=== PATIENT | male | born 1955 | race Caucasian/White ===

== ENCOUNTER 2018-10-15 14:14 | Inpatient (IN) | payer BC ==
[~2018-10-15] VITALS: Ht 185.4 cm; Wt 73.0 kg
[2018-10-15 14:55] LABS: BASOPHILS # (AUTO) 0.1 X10'3 (0-0.2); EOSINOPHILS # (AUTO) 0.3 X10'3 (0-0.9); EOSINOPHILS % (AUTO) 2.4 % (0-6); RED CELL DISTRIBUTION WIDTH 18.5 % (11.5-14.5)
[2018-10-15 14:56] LABS: BASOPHILS % (AUTO) 0.6 % (0-1); HEMATOCRIT 30.1 % (42.0-52.0); HEMOGLOBIN 9.5 g/dl (14.0-17.9); MEAN CORPUSCULAR HEMOGLOBIN 22.2 PG (27.0-31.0); MEAN CORPUSCULAR HGB CONC 31.4 g/dL (33.0-36.5); MEAN CORPUSCULAR VOLUME 70.7 FL (78-98); MEAN PLATELET VOLUME 6.4 FL (7.4-10.4); MONOCYTES # (AUTO) 0.7 X10'3 (0-0.9); MONOCYTES % (AUTO) 5.7 % (2-12); NEUTROPHILS % (AUTO) 83.3 % (42-75); PLATELET COUNT 678 X10'3 (140-440); RED BLOOD COUNT 4.26 X10'6 (4.70-6.10); WHITE BLOOD COUNT 12.1 X10'3 (4.5-11.0)
[2018-10-15 15:07] LABS: INR 1.1 INR; PARTIAL THROMBOPLASTIN TIME 33 SECONDS (22-32)
[2018-10-15 15:09] LABS: ALANINE AMINOTRANSFERASE 19 U/L (12-78); ALBUMIN 1.5 G/DL (3.4-5.0); ALBUMIN/GLOBULIN RATIO 0.3 (1.1-1.5); ALKALINE PHOSPHATASE 65 IU/L (46-116); ANION GAP 5 (8-16); ASPARTATE AMINO TRANSFERASE 20 U/L (10-37); BILIRUBIN,TOTAL 0.3 MG/DL (0.1-1.0); BLOOD UREA NITROGEN 12 MG/DL (7-18); CALCIUM 8.4 MG/DL (8.5-10.1); CHLORIDE 98 MMOL/L (99-107); CREATININE 0.75 MG/DL (0.60-1.10); GLUCOSE 99 MG/DL (70-104); POTASSIUM 3.9 MMOL/L (3.5-5.1); SODIUM 132 MMOL/L (135-145); TOTAL CARBON DIOXIDE 29.3 MMOL/L (24-32); TOTAL PROTEIN 6.4 G/DL (6.4-8.2); eGFR > 90 ML/MIN
[2018-10-15] MEDS ORDERED: iohexol 300mg/ml 100ml inj. ONE (15:38)
[2018-10-15] MEDS ORDERED: iohexol 300 MG/1 ML 50ml polymer ONE (15:41)
[2018-10-15] MEDS ORDERED: HYDR-3965 PO (15:44)
[2018-10-15] MEDS ORDERED: piperacillin/tazo 3.375gm/50ml 50 ML IV ONE (17:10)
[2018-10-15] MEDS ORDERED: AMOX1TAB15 PO (17:32)
[2018-10-15] MEDS ORDERED: OMEP-50 PO (17:32)
--- NOTE | 2018-10-15 19:44 | NUR ---
PT REMAINS IN ISOLATION, AIRBORN, AT BEDSIDE. CURRENT VSS. PT AWAITING HOSPITALIST.
--- NOTE | 2018-10-15 20:10 | NUR ---
dr yao at bedside for admission. pt reports a 22 lb weight loss over the past 4 weeks. reports the pts results on his TB testing are not yet resulted. pt's at bedside. remains tachycardic @ 105. rr 20 and sats 93% on RA.
--- NOTE | 2018-10-15 20:24 | NUR ---
UA COLLECTED, , YAO, CELL [phone]. PT WILL NEED NEGATIVE PRESSURE ROOM AND UPDATED OF POSSIBLE DELAY.
[2018-10-15 20:27] LABS: CLARITY,URINE CLEAR (Clear); COLOR,URINE YELLOW (Yellow); GLUCOSE, URINE NEGATIVE (Neg); KETONES,URINE NEGATIVE (Neg); LEUKOCYTE ESTERASE ,URINE NEGATIVE (Neg); NITRITES, URINE NEGATIVE (Neg); OCCULT BLOOD,URINE NEGATIVE (Neg); PH,URINE 6.5 (4.8-8.0); PROTEIN,URINE TRACE mg/dl (Neg); UROBILINOGEN,URINE 0.2 E.U/dL (0.2-1.0)
[2018-10-15] MEDS ORDERED: ondansetron/PF 4mg/2ml inj IV PRN (20:30)
[2018-10-15] MEDS ORDERED: mag hydrox/Alum hydrox/simeth 30ml oral suspension PO PRN (20:30)
[2018-10-15] MEDS ORDERED: magnesium hydroxide 30ml (MOM) UD suspension PO PRN (20:30)
[2018-10-15 20:31] LABS: UA COLLECTION TYPE CLN CATCH MIDSTREAM
[2018-10-15 20:38] LABS: BACTERIA,URINE FEW /HPF (Neg); MUCUS STRANDS MODERATE /LPF (Neg); RBC,URINE 0-2 /HPF (0-2); SQUAMOUS EPITHELIAL CELL,UR FEW /LPF (FEW); WBC,URINE 0-4 /HPF (0-4)
--- NOTE | 2018-10-15 23:20 | NUR ---
Received report from LEYDA Parsons. Awaiting patient arrival to the floor.
[2018-10-15] MEDS: HYDROcodone/acetaminophen 10/325mg tab PO PRN (23:26)
[2018-10-16] VITALS: BP 103/62
--- NOTE | 2018-10-16 | NUR ---
Patient arrived via gurney to the floor. Patient placed in room 341; awake and alert on 2L NC, in no apparent distress. Visitor at bedside. Call light and items of frequent use within reach. Will continue to monitor.
[2018-10-16 02:51] LABS: BASOPHILS # (AUTO) 0.1 X10'3 (0-0.2); BASOPHILS % (AUTO) 1.1 % (0-1); EOSINOPHILS # (AUTO) 0.4 X10'3 (0-0.9); EOSINOPHILS % (AUTO) 3.8 % (0-6); HEMATOCRIT 26.8 % (42.0-52.0); HEMOGLOBIN 8.7 g/dl (14.0-17.9); LYMPHOCYTES # (AUTO) 1.1 X10'3 (1.1-4.8); LYMPHOCYTES % (AUTO) 11.3 % (21-51); MEAN CORPUSCULAR HEMOGLOBIN 22.7 PG (27.0-31.0); MEAN CORPUSCULAR HGB CONC 32.4 g/dL (33.0-36.5); MEAN CORPUSCULAR VOLUME 70.1 FL (78-98); MEAN PLATELET VOLUME 6.3 FL (7.4-10.4); MONOCYTES # (AUTO) 0.7 X10'3 (0-0.9); MONOCYTES % (AUTO) 6.6 % (2-12); NEUTROPHILS # (AUTO) 7.7 X10'3 (1.8-7.7); NEUTROPHILS % (AUTO) 77.2 % (42-75); PLATELET COUNT 557 X10'3 (140-440); RED BLOOD COUNT 3.82 X10'6 (4.70-6.10); RED CELL DISTRIBUTION WIDTH 18.9 % (11.5-14.5)
[2018-10-16 03:08] LABS: ALANINE AMINOTRANSFERASE 15 U/L (12-78); ALBUMIN 1.3 G/DL (3.4-5.0); ALBUMIN/GLOBULIN RATIO 0.3 (1.1-1.5); ALKALINE PHOSPHATASE 68 IU/L (46-116); ANION GAP 4 (8-16); ASPARTATE AMINO TRANSFERASE 15 U/L (10-37); BILIRUBIN,TOTAL 0.2 MG/DL (0.1-1.0); BLOOD UREA NITROGEN 12 MG/DL (7-18); BUN/CREATININE RATIO 16.2 (5.4-32.0); CALCIUM 8.4 MG/DL (8.5-10.1); CHLORIDE 100 MMOL/L (99-107); CREATININE 0.74 MG/DL (0.60-1.10); GLUCOSE 121 MG/DL (70-104); POTASSIUM 3.7 MMOL/L (3.5-5.1); SODIUM 133 MMOL/L (135-145); TOTAL CARBON DIOXIDE 29.3 MMOL/L (24-32); TOTAL PROTEIN 5.6 G/DL (6.4-8.2); eGFR > 90 ML/MIN
[2018-10-16 04:16] LABS: ANISOCYTOSIS 2+; MICROCYTOSIS 1+; PLATELET ESTIMATE INCREASED
[2018-10-16 04:17] LABS: ELLIPTOCYTES FEW; HYPOCHROMASIA 1+
--- NOTE | 2018-10-16 06:18 | NUR ---
Problems reprioritized. Patient report given, questions answered & plan of care reviewed with LEYDA Curry.
[2018-10-16 07:08] VITALS: BP 107/59
[2018-10-16] MEDS ORDERED: non-formulary drug (Omeprazole 1 CAP) PO SCH (08:00)
[2018-10-16] MEDS ORDERED: heparin, porcine 5000 units/ml vial SQ SCH (08:00)
[2018-10-16] MEDS: pantoprazole 40mg Tablet.DR PO SCH ×2 (08:16→20:23)
[2018-10-16] MEDS ORDERED: potassium Cl 20 mEq SR tablet PO PRN (08:45)
[2018-10-16] MEDS ORDERED: magnesium Cl slow-release 64mg tablet PO PRN (08:45)
[2018-10-16] MEDS ORDERED: magnesium 4gm in 100ml NS 100 ML IV PRN (08:45)
[2018-10-16] MEDS ORDERED: potassium Cl 40MEQ/NS 500ml 500 ML IV PRN ×2 (08:45)
[2018-10-16 11:00] VITALS: BP 103/59
[2018-10-16 13:01] LABS: FERRITIN 644 NG/ML (26-388)
[2018-10-16 13:29] LABS: % IRON SATURATION 7 % (11-46); IRON 10 UG/DL (53-167); TOTAL IRON BINDING CAPACITY 137 UG/DL (259-388)
[2018-10-16] MEDS: HYDROcodone/acetaminophen 5mg/325mg tablet PO PRN (14:57)
[2018-10-16 16:06] LABS: HIV ANTIBODY 1&2 RAPID NON-REACTIVE (Neg)
[2018-10-16] MEDS ORDERED: PEG 3350/Na sulf,bicarb,Cl/KCl oral sol 4 liter bottle PO ONE (16:15)
[2018-10-16] MEDS ORDERED: ipratropium/albuterol 3ml nebule NEB PRN (16:20)
[2018-10-16] MEDS: normal saline 1000ml 1,000 ML IV SCH (17:30)
[2018-10-16 18:00] VITALS: BP 103/59
--- NOTE | 2018-10-16 18:30 | NUR ---
Patient in room [facility]. I have received report from LEYDA Curry and had the opportunity to ask questions and assume patient care.
[2018-10-17] VITALS (9 sets, daily range): BP systolic 97–119; BP diastolic 53–67
[2018-10-17] MEDS: HYDROcodone/acetaminophen 10/325mg tab PO PRN (01:24)
[2018-10-17] MEDS: normal saline 1000ml 1,000 ML IV SCH ×2 (03:07→13:00)
[2018-10-17 03:36] LABS: OCCULT BLOOD STOOL NEGATIVE (Neg)
[2018-10-17 04:21] LABS: BASOPHILS # (AUTO) 0.1 X10'3 (0-0.2); EOSINOPHILS # (AUTO) 0.3 X10'3 (0-0.9)
[2018-10-17 04:23] LABS: EOSINOPHILS % (AUTO) 2.8 % (0-6); HEMATOCRIT 28.5 % (42.0-52.0); LYMPHOCYTES # (AUTO) 1.1 X10'3 (1.1-4.8); LYMPHOCYTES % (AUTO) 10.8 % (21-51); MEAN CORPUSCULAR HEMOGLOBIN 22.6 PG (27.0-31.0); MEAN CORPUSCULAR HGB CONC 31.8 g/dL (33.0-36.5); MEAN PLATELET VOLUME 6.5 FL (7.4-10.4); MONOCYTES # (AUTO) 0.6 X10'3 (0-0.9); NEUTROPHILS # (AUTO) 8.3 X10'3 (1.8-7.7); NEUTROPHILS % (AUTO) 79.4 % (42-75); PLATELET COUNT 671 X10'3 (140-440); RED BLOOD COUNT 4.01 X10'6 (4.70-6.10); RED CELL DISTRIBUTION WIDTH 18.9 % (11.5-14.5); WHITE BLOOD COUNT 10.4 X10'3 (4.5-11.0)
[2018-10-17 04:42] LABS: ALANINE AMINOTRANSFERASE 22 U/L (12-78); ALBUMIN 1.4 G/DL (3.4-5.0); ALBUMIN/GLOBULIN RATIO 0.3 (1.1-1.5); ALKALINE PHOSPHATASE 62 IU/L (46-116); ANION GAP 4 (8-16); ASPARTATE AMINO TRANSFERASE 22 U/L (10-37); BILIRUBIN,TOTAL 0.3 MG/DL (0.1-1.0); BLOOD UREA NITROGEN 11 MG/DL (7-18); BUN/CREATININE RATIO 14.1 (5.4-32.0); CALCIUM 8.4 MG/DL (8.5-10.1); CHLORIDE 100 MMOL/L (99-107); CREATININE 0.78 MG/DL (0.60-1.10); GLUCOSE 106 MG/DL (70-104); MAGNESIUM 1.7 MG/DL (1.5-2.4); POTASSIUM 4.2 MMOL/L (3.5-5.1); SODIUM 134 MMOL/L (135-145); TOTAL CARBON DIOXIDE 29.7 MMOL/L (24-32); eGFR > 90 ML/MIN
--- NOTE | 2018-10-17 06:00 | NUR ---
Patient in room [facility]. I have received report from LEYDA Mercado and had the opportunity to ask questions and assume patient care.
--- NOTE | 2018-10-17 06:07 | NUR ---
Problems reprioritized. Patient report given, questions answered & plan of care reviewed with LEYDA Wesley.
[2018-10-17 06:41] LABS: ANISOCYTOSIS 2+; MICROCYTOSIS 1+; PLATELET ESTIMATE INCREASED; POLYCHROMASIA FEW; SCHISTOCYTES FEW
[2018-10-17 06:42] LABS: ELLIPTOCYTES FEW; HYPOCHROMASIA 1+
[2018-10-17] MEDS ORDERED: IBUP-1986 PO (07:31)
[2018-10-17] MEDS: pantoprazole 40mg Tablet.DR PO SCH ×2 (07:53→21:33)
[2018-10-17] MEDS ORDERED: PEG 3350/Na sulf,bicarb,Cl/KCl oral sol 4 liter bottle PO ONE (10:50)
[2018-10-17] MEDS ORDERED: LIDOcaine Viscous 15ml cup ONE (16:46)
[2018-10-17] MEDS ORDERED: MIDAZolam 5mg/5ml vial ONE (16:46)
[2018-10-17] MEDS ORDERED: fentaNYL/PF 50MCG/1 ML 2ML syringe ONE (16:46)
--- NOTE | 2018-10-17 18:00 | NUR ---
Problems reprioritized. Patient report given, questions answered & plan of care reviewed with LEYDA Zavala.
--- NOTE | 2018-10-17 18:00 | NUR ---
Problems reprioritized. Patient report given, questions answered & plan of care reviewed with LEYDA Zavala.
--- NOTE | 2018-10-17 18:46 | NUR ---
Received orders from Dr. Quiroz, to D/C arnoldo DIETRICH and start patient on PO pain medications he takes at home.
--- NOTE | 2018-10-17 18:50 | NUR ---
Patient in room [facility]. I have received report from BANDAR CRABTREE and had the opportunity to ask questions and assume patient care.
[2018-10-17] MEDS: sodium ferric gluc complex inj 125 MG in normal saline 100ml IV soln 100 ML IV SCH (19:26)
[2018-10-17] MEDS: diatr meglu/diatrizoate 30ml oral sol.-(3 dose) bottle PO SCH (21:33)
[2018-10-18] VITALS (18 sets, daily range): BP systolic 102–126; BP diastolic 58–102
[2018-10-18] MEDS: normal saline 1000ml 1,000 ML IV SCH ×3 (03:00→17:52)
[2018-10-18 05:17] LABS: BASOPHILS # (AUTO) 0.1 X10'3 (0-0.2); BASOPHILS % (AUTO) 1.2 % (0-1); EOSINOPHILS # (AUTO) 0.3 X10'3 (0-0.9); EOSINOPHILS % (AUTO) 3.3 % (0-6); HEMOGLOBIN 8.6 g/dl (14.0-17.9); LYMPHOCYTES # (AUTO) 0.7 X10'3 (1.1-4.8); LYMPHOCYTES % (AUTO) 7.7 % (21-51); MEAN CORPUSCULAR HEMOGLOBIN 22.5 PG (27.0-31.0); MEAN CORPUSCULAR HGB CONC 32.1 g/dL (33.0-36.5); MEAN PLATELET VOLUME 6.6 FL (7.4-10.4); MONOCYTES # (AUTO) 0.6 X10'3 (0-0.9); MONOCYTES % (AUTO) 6.7 % (2-12); NEUTROPHILS # (AUTO) 7.8 X10'3 (1.8-7.7); NEUTROPHILS % (AUTO) 81.1 % (42-75); PLATELET COUNT 607 X10'3 (140-440); RED BLOOD COUNT 3.85 X10'6 (4.70-6.10); RED CELL DISTRIBUTION WIDTH 18.6 % (11.5-14.5); WHITE BLOOD COUNT 9.6 X10'3 (4.5-11.0)
[2018-10-18 05:42] LABS: ALANINE AMINOTRANSFERASE 12 U/L (12-78); ALBUMIN 1.3 G/DL (3.4-5.0); ALBUMIN/GLOBULIN RATIO 0.3 (1.1-1.5); ALKALINE PHOSPHATASE 58 IU/L (46-116); ANION GAP 9 (8-16); ASPARTATE AMINO TRANSFERASE 16 U/L (10-37); BILIRUBIN,TOTAL 0.2 MG/DL (0.1-1.0); BLOOD UREA NITROGEN 6 MG/DL (7-18); CALCIUM 8.2 MG/DL (8.5-10.1); CHLORIDE 100 MMOL/L (99-107); CREATININE 0.67 MG/DL (0.60-1.10); GLUCOSE 92 MG/DL (70-104); MAGNESIUM 1.5 MG/DL (1.5-2.4); PHOSPHORUS 2.7 MG/DL (2.3-4.5); POTASSIUM 3.4 MMOL/L (3.5-5.1); SODIUM 135 MMOL/L (135-145); TOTAL CARBON DIOXIDE 26.5 MMOL/L (24-32); TOTAL PROTEIN 5.5 G/DL (6.4-8.2); eGFR > 90 ML/MIN
[2018-10-18] MEDS ORDERED: morphine 10mg/ml inj. IM ONE (07:30)
--- NOTE | 2018-10-18 07:34 | NUR ---
patient down to bronchoscopy procedure in wheelchair accompanied by x1 staff.
[2018-10-18] MEDS ORDERED: LIDOCAINE 4% (40MG/ML) topical solution 50ml **BRONCH ONLY ONE (07:35)
[2018-10-18] MEDS ORDERED: lidocaine 2% viscous 15 ML cup ***bronch room only MM ONE (07:35)
[2018-10-18] MEDS ORDERED: phenylephrine 1% Nasal spray (extra-strength) 15 ML bottle **bronch room NS ONE ×2 (07:35→07:36)
[2018-10-18] MEDS ORDERED: MIDAZolam 5mg/5ml vial ONE (07:46)
--- NOTE | 2018-10-18 09:01 | NUR ---
Patient returned to room. Visitors in patient room. Patient A&O and in no apparent distress.
--- NOTE | 2018-10-18 09:14 | NUR ---
patient and spouse reports that they noticed a rash develop on patients back after receiving his iron iv dose yesterday. patient reports he "didn't notice anything different, until she told me." Patient denies itching or pain to red spots on upper back. Dr. Garcia notified and stated okay to infuse today's dose.
[2018-10-18] MEDS: pantoprazole 40mg Tablet.DR PO SCH ×2 (09:19→19:23)
--- NOTE | 2018-10-18 09:30 | NUR ---
Patient gag reflex checked with tongue depressor and is intact. Patient had gag reflex. Patient spouse and daughter at bedside.
[2018-10-18] MEDS: sodium ferric gluc complex inj 125 MG in normal saline 100ml IV soln 100 ML IV SCH (09:33)
[2018-10-18] MEDS: diatr meglu/diatrizoate 30ml oral sol.-(3 dose) bottle PO SCH ×2 (09:38→12:00)
[2018-10-18 10:45] LABS: H PYLORI ANTIBODY NEGATIVE (Neg)
[2018-10-18] MEDS ORDERED: iohexol 300mg/ml 100ml inj. ONE (12:00)
--- NOTE | 2018-10-18 12:09 | NUR ---
Patient down to CT procedure in wheelchair accompanied by x1 staff.
--- NOTE | 2018-10-18 18:49 | NUR ---
Problems reprioritized. Patient report given, questions answered & plan of care reviewed with LEYDA Carrillo.
--- NOTE | 2018-10-18 18:49 | NUR ---
Patient in room [facility]. I have received report from Kalpana CRABTREE and had the opportunity to ask questions and assume patient care.
[2018-10-18] MEDS: potassium Cl 20 mEq SR tablet PO PRN (19:24)
[2018-10-18] MEDS ORDERED: diatr meglu/diatrizoate 30ml oral sol.-(3 dose) bottle PO SCH (21:00)
[2018-10-19] VITALS: BP 104/59
[2018-10-19 05:28] LABS: EOSINOPHILS # (AUTO) 0.3 X10'3 (0-0.9); EOSINOPHILS % (AUTO) 2.9 % (0-6); HEMOGLOBIN 8.2 g/dl (14.0-17.9); MONOCYTES # (AUTO) 0.6 X10'3 (0-0.9); RED CELL DISTRIBUTION WIDTH 18.6 % (11.5-14.5); WHITE BLOOD COUNT 9.4 X10'3 (4.5-11.0)
[2018-10-19 05:30] LABS: BASOPHILS % (AUTO) 0.5 % (0-1); HEMATOCRIT 25.6 % (42.0-52.0); LYMPHOCYTES # (AUTO) 0.9 X10'3 (1.1-4.8); LYMPHOCYTES % (AUTO) 9.2 % (21-51); MEAN CORPUSCULAR HEMOGLOBIN 22.3 PG (27.0-31.0); MEAN CORPUSCULAR HGB CONC 31.9 g/dL (33.0-36.5); MEAN PLATELET VOLUME 6.6 FL (7.4-10.4); MONOCYTES % (AUTO) 6.7 % (2-12); NEUTROPHILS # (AUTO) 7.6 X10'3 (1.8-7.7); NEUTROPHILS % (AUTO) 80.7 % (42-75); PLATELET COUNT 638 X10'3 (140-440); RED BLOOD COUNT 3.67 X10'6 (4.70-6.10)
[2018-10-19 05:32] LABS: ALANINE AMINOTRANSFERASE 13 U/L (12-78); ALBUMIN 1.3 G/DL (3.4-5.0); ALBUMIN/GLOBULIN RATIO 0.3 (1.1-1.5); ALKALINE PHOSPHATASE 62 IU/L (46-116); ANION GAP 7 (8-16); ASPARTATE AMINO TRANSFERASE 16 U/L (10-37); BILIRUBIN,TOTAL 0.2 MG/DL (0.1-1.0); BLOOD UREA NITROGEN 6 MG/DL (7-18); BUN/CREATININE RATIO 8.6 (5.4-32.0); CALCIUM 8.2 MG/DL (8.5-10.1); CHLORIDE 102 MMOL/L (99-107); GLUCOSE 110 MG/DL (70-104); MAGNESIUM 1.6 MG/DL (1.5-2.4); PHOSPHORUS 2.6 MG/DL (2.3-4.5); POTASSIUM 3.4 MMOL/L (3.5-5.1); SODIUM 137 MMOL/L (135-145); TOTAL CARBON DIOXIDE 27.6 MMOL/L (24-32); TOTAL PROTEIN 5.4 G/DL (6.4-8.2); eGFR > 90 ML/MIN
--- NOTE | 2018-10-19 07:10 | NUR ---
Problems reprioritized. Patient report given, questions answered & plan of care reviewed with Kalpana CRABTREE.
[2018-10-19] MEDS: potassium Cl 20 mEq SR tablet PO PRN ×2 (07:13→19:41)
[2018-10-19] MEDS: pantoprazole 40mg Tablet.DR PO SCH ×2 (07:13→19:41)
[2018-10-19 07:45] VITALS: BP 118/67
[2018-10-19] MEDS: sodium ferric gluc complex inj 125 MG in normal saline 100ml IV soln 100 ML IV SCH (08:55)
[2018-10-19 11:09] LABS: CRYPTOCOCCUS ANTIGEN, SERUM Negative (Negative)
[2018-10-19 12:00] VITALS: BP 113/63
[2018-10-19 18:00] VITALS: BP 118/60
--- NOTE | 2018-10-19 18:16 | NUR ---
Patient in room [facility]. I have received report from Kalpana CRABTREE and had the opportunity to ask questions and assume patient care.
--- NOTE | 2018-10-19 18:16 | NUR ---
Problems reprioritized. Patient report given, questions answered & plan of care reviewed with LEYDA RIVERA.
[2018-10-19] MEDS ORDERED: potassium Cl 40MEQ/NS 500ml 500 ML IV PRN ×2 (18:35)
[2018-10-19] MEDS ORDERED: potassium Cl 20 mEq SR tablet PO PRN (18:35)
[2018-10-20] VITALS: BP 113/65
[2018-10-20] MEDS: potassium Cl 20 mEq SR tablet PO PRN (00:29)
[2018-10-20 03:51] LABS: BASOPHILS # (AUTO) 0.1 X10'3 (0-0.2); EOSINOPHILS # (AUTO) 0.4 X10'3 (0-0.9); MEAN CORPUSCULAR VOLUME 70.1 FL (78-98); MONOCYTES # (AUTO) 0.6 X10'3 (0-0.9); RED CELL DISTRIBUTION WIDTH 18.5 % (11.5-14.5)
[2018-10-20 03:53] LABS: BASOPHILS % (AUTO) 0.8 % (0-1); EOSINOPHILS % (AUTO) 4.2 % (0-6); HEMATOCRIT 27.1 % (42.0-52.0); HEMOGLOBIN 8.7 g/dl (14.0-17.9); LYMPHOCYTES % (AUTO) 10.9 % (21-51); MEAN CORPUSCULAR HEMOGLOBIN 22.6 PG (27.0-31.0); MEAN CORPUSCULAR HGB CONC 32.2 g/dL (33.0-36.5); MEAN PLATELET VOLUME 6.5 FL (7.4-10.4); MONOCYTES % (AUTO) 6.6 % (2-12); NEUTROPHILS # (AUTO) 6.8 X10'3 (1.8-7.7); NEUTROPHILS % (AUTO) 77.5 % (42-75); PLATELET COUNT 624 X10'3 (140-440); RED BLOOD COUNT 3.87 X10'6 (4.70-6.10); WHITE BLOOD COUNT 8.8 X10'3 (4.5-11.0)
[2018-10-20 04:06] LABS: ALANINE AMINOTRANSFERASE 15 U/L (12-78); ALBUMIN 1.3 G/DL (3.4-5.0); ALBUMIN/GLOBULIN RATIO 0.3 (1.1-1.5); ALKALINE PHOSPHATASE 60 IU/L (46-116); ANION GAP 2 (8-16); ASPARTATE AMINO TRANSFERASE 18 U/L (10-37); BILIRUBIN,TOTAL 0.2 MG/DL (0.1-1.0); BLOOD UREA NITROGEN 7 MG/DL (7-18); BUN/CREATININE RATIO 9.6 (5.4-32.0); CHLORIDE 104 MMOL/L (99-107); CREATININE 0.73 MG/DL (0.60-1.10); GLUCOSE 108 MG/DL (70-104); MAGNESIUM 1.7 MG/DL (1.5-2.4); PHOSPHORUS 2.6 MG/DL (2.3-4.5); SODIUM 135 MMOL/L (135-145); TOTAL CARBON DIOXIDE 29.4 MMOL/L (24-32); TOTAL PROTEIN 5.5 G/DL (6.4-8.2); eGFR > 90 ML/MIN
--- NOTE | 2018-10-20 06:00 | NUR ---
Patient in room [facility]. I have received report from LEYDA Carrillo and had the opportunity to ask questions and assume patient care.
--- NOTE | 2018-10-20 06:10 | NUR ---
Problems reprioritized. Patient report given, questions answered & plan of care reviewed with YVONNE rn. no signs of distress. at bedside. call light and frq used belongings within reach. IV intact.
[2018-10-20 06:30] VITALS: BP 111/62
[2018-10-20] MEDS: pantoprazole 40mg Tablet.DR PO SCH ×2 (10:36→20:36)
[2018-10-20] MEDS: sodium ferric gluc complex inj 125 MG in normal saline 100ml IV soln 100 ML IV SCH (10:37)
[2018-10-20 11:30] VITALS: BP 103/65
[2018-10-20 13:21] LABS: RED BLOOD COUNT 4.21 X10'6 (4.70-6.10); RETICULOCYTE % (AUTO) 1.8 % (0.5-1.5)
[2018-10-20 19:00] VITALS: BP 129/63
[2018-10-20 23:00] VITALS: BP 106/62
[2018-10-21 05:37] LABS: MAGNESIUM 1.7 MG/DL (1.5-2.4); PHOSPHORUS 3.1 MG/DL (2.3-4.5)
--- NOTE | 2018-10-21 06:20 | NUR ---
Patient in room [facility]. I have received report from LEYDA Saavedra and had the opportunity to ask questions and assume patient care.
[2018-10-21 06:30] VITALS: BP 105/61
[2018-10-21] MEDS: sodium ferric gluc complex inj 125 MG in normal saline 100ml IV soln 100 ML IV SCH (10:39)
[2018-10-21] MEDS: pantoprazole 40mg Tablet.DR PO SCH ×2 (10:39→19:57)
[2018-10-21 11:00] VITALS: BP 106/62
--- NOTE | 2018-10-21 18:55 | NUR ---
Problems reprioritized. Patient report given, questions answered & plan of care reviewed with LEYDA Reagan & LEYDA Andujar.
[2018-10-21 19:00] VITALS: BP 104/61
[2018-10-22] VITALS: BP 148/81
--- NOTE | 2018-10-22 06:14 | NUR ---
I have reviewed and agree with all interventions, assessments performed and documented by LEYDA Borja.
--- NOTE | 2018-10-22 06:14 | NUR ---
Problems reprioritized. Patient report given, questions answered & plan of care reviewed with Gracie.
[2018-10-22 07:10] VITALS: BP 98/60
[2018-10-22] MEDS: pantoprazole 40mg Tablet.DR PO SCH ×2 (08:11→20:12)
--- NOTE | 2018-10-22 10:37 | NUR ---
Initial: Pt admit with acute on chronic respiratory failure. Pt s/p EGD and CT which were normal and s/p colonoscopy which showed diverticular disease and a polyp per MD progress notes. Pt received IV iron for microcytic anemia and B12 level has been ordered per MD notes, per lab results B12 WNL. Pt currently on a regular diet with documented 75-100% PO intake meeting nutrient needs. LBM 10/21. No edema or wounds. No nutrition diagnosis at this time. Will continue to follow. Recommendations: 1) Continue with regular diet 2) Wt per rx Addendum: 10/22/18 at [address] Amended: Links added.
[2018-10-22 12:53] VITALS: BP 93/57
[2018-10-22 17:28] LABS: RF TITER 160 IU/ml (Neg); RHEUM FACTOR QUAL REFLEX TITER POSITIVE (Neg)
--- NOTE | 2018-10-22 18:07 | NUR ---
Received report from LEYDA Ortega. Patient is awake and alert on room air, in no apparent distress. Call light and items of frequent use within reach. Will continue to monitor.
--- NOTE | 2018-10-22 18:07 | NUR ---
Problems reprioritized. Patient report given, questions answered & plan of care reviewed with LEYDA Reagan.
[2018-10-22 20:00] VITALS: BP 109/66
[2018-10-23] VITALS: BP 95/54
--- NOTE | 2018-10-23 01:05 | NUR ---
Fever of 100.6F. MD Marly aware, no new orders.
--- NOTE | 2018-10-23 06:08 | NUR ---
Problems reprioritized. Patient report given, questions answered & plan of care reviewed with LEYDA Seay.
[2018-10-23] MEDS: pantoprazole 40mg Tablet.DR PO SCH ×2 (06:52→20:08)
[2018-10-23] MEDS: HYDROcodone/acetaminophen 10/325mg tab PO PRN (06:55)
[2018-10-23 07:00] VITALS: BP 107/64
[2018-10-23 11:17] VITALS: BP 96/58
--- NOTE | 2018-10-23 18:11 | NUR ---
Patient in room [facility]. I have received report from LEYDA Seay and had the opportunity to ask questions and assume patient care. Patient is sitting up, watching TV. Visitor at bedside. Call light and items of frequent use within reach. Will continue to monitor.
--- NOTE | 2018-10-23 18:40 | NUR ---
Problems reprioritized. Patient report given, questions answered & plan of care reviewed with CRYSTAL CRABTREE.
[2018-10-23 20:00] VITALS: BP 109/64
[2018-10-23] MEDS ORDERED: temazepam 15mg capsule PO PRN (20:20)
[2018-10-23] MEDS: HYDROcodone/acetaminophen 5mg/325mg tablet PO PRN (23:41)
[2018-10-24] VITALS: BP 106/60
[2018-10-24 04:34] LABS: BASOPHILS # (AUTO) 0.1 X10'3 (0-0.2); BASOPHILS % (AUTO) 0.7 % (0-1); EOSINOPHILS # (AUTO) 0.4 X10'3 (0-0.9); EOSINOPHILS % (AUTO) 4.6 % (0-6); HEMATOCRIT 26.4 % (42.0-52.0); HEMOGLOBIN 8.6 g/dl (14.0-17.9); LYMPHOCYTES # (AUTO) 1.1 X10'3 (1.1-4.8); MEAN CORPUSCULAR HEMOGLOBIN 22.7 PG (27.0-31.0); MEAN CORPUSCULAR HGB CONC 32.4 g/dL (33.0-36.5); MEAN CORPUSCULAR VOLUME 70.2 FL (78-98); MEAN PLATELET VOLUME 6.3 FL (7.4-10.4); MONOCYTES # (AUTO) 0.6 X10'3 (0-0.9); MONOCYTES % (AUTO) 7.2 % (2-12); NEUTROPHILS # (AUTO) 6.7 X10'3 (1.8-7.7); NEUTROPHILS % (AUTO) 75.5 % (42-75); PLATELET COUNT 585 X10'3 (140-440); RED BLOOD COUNT 3.77 X10'6 (4.70-6.10); RED CELL DISTRIBUTION WIDTH 19.1 % (11.5-14.5); WHITE BLOOD COUNT 8.8 X10'3 (4.5-11.0)
[2018-10-24 04:49] LABS: ALANINE AMINOTRANSFERASE 27 U/L (12-78); ALBUMIN 1.5 G/DL (3.4-5.0); ALBUMIN/GLOBULIN RATIO 0.3 (1.1-1.5); ALKALINE PHOSPHATASE 75 IU/L (46-116); ANION GAP 5 (8-16); ASPARTATE AMINO TRANSFERASE 23 U/L (10-37); BILIRUBIN,TOTAL 0.2 MG/DL (0.1-1.0); BLOOD UREA NITROGEN 16 MG/DL (7-18); BUN/CREATININE RATIO 21.1 (5.4-32.0); CALCIUM 8.6 MG/DL (8.5-10.1); CHLORIDE 101 MMOL/L (99-107); CREATININE 0.76 MG/DL (0.60-1.10); GLUCOSE 108 MG/DL (70-104); POTASSIUM 3.8 MMOL/L (3.5-5.1); SODIUM 135 MMOL/L (135-145); TOTAL PROTEIN 5.9 G/DL (6.4-8.2); eGFR > 90 ML/MIN
--- NOTE | 2018-10-24 06:30 | NUR ---
Patient in room [facility]. I have received report from LEYDA Reagan and had the opportunity to ask questions and assume patient care.
--- NOTE | 2018-10-24 06:36 | NUR ---
Problems reprioritized. Patient report given, questions answered & plan of care reviewed with LEYDA Walters. Addendum: 10/24/18 at 0643 by Merary Landaverde RN Problems reprioritized. Patient report given, questions answered & plan of care reviewed with LEYDA Wesley.
[2018-10-24 07:35] VITALS: BP 93/70
[2018-10-24] MEDS: pantoprazole 40mg Tablet.DR PO SCH ×2 (08:08→19:36)
[2018-10-24 08:14] LABS: RPR Non Reactive (Non Reactive)
[2018-10-24 08:14] LABS: IMMUNOGLOBULIN A, QN, SERUM 262 mg/dL (61-437); IMMUNOGLOBULIN G, QN, SERUM 1357 mg/dL (700-1600); IMMUNOGLOBULIN M, QN, SERUM 85 mg/dL (20-172)
--- NOTE | 2018-10-24 10:00 | NUR ---
Doug, Stereotyper Apprentice, called regarding a corrective report on the CK level drawn 10/23 that was reported as <7. Today the CK level was rerun on the same vial for a new result of 22. LEYDA Wesley notified.
[2018-10-24 10:01] LABS: CREATINE KINASE 22 U/L (39-308)
[2018-10-24 10:32] LABS: % IRON SATURATION 8 % (11-46); IRON 11 UG/DL (53-167); TOTAL IRON BINDING CAPACITY 133 UG/DL (259-388)
[2018-10-24 11:30] VITALS: BP 100/46
[2018-10-24 13:12] LABS: HBSAG SCREEN Negative (Negative); HEPATITIS C ANTIBODY <0.1 s/co ratio (0.0-0.9)
--- NOTE | 2018-10-24 18:00 | NUR ---
Problems reprioritized. Patient report given, questions answered & plan of care reviewed with [LEYDA Hernandez].
[2018-10-24 19:00] VITALS: BP 115/66
[2018-10-25] VITALS: BP 125/67
[2018-10-25 04:00] VITALS: BP 96/65
--- NOTE | 2018-10-25 06:26 | NUR ---
Problems reprioritized. Patient report given, questions answered & plan of care reviewed with Gracie CRABTREE. Addendum: 10/25/18 at 0626 by Mary Argueta RN Amended: Links added.
[2018-10-25 07:00] VITALS: BP 104/60
[2018-10-25] MEDS: pantoprazole 40mg Tablet.DR PO SCH ×2 (07:31→19:14)
[2018-10-25 09:18] LABS: ANGIOTESIN-CONVERTING ENZYME 33 U/L (14-82)
[2018-10-25 10:52] VITALS: BP 109/54
[2018-10-25 11:22] LABS: A/G RATIO 0.5 (0.7-1.7); ALBUMIN 1.9 g/dL (2.9-4.4); BETA GLOBULIN 0.9 g/dL (0.7-1.3); GAMMA GLOBULIN 1.2 g/dL (0.4-1.8); GLOBULIN, TOTAL 3.7 g/dL (2.2-3.9); M-SPIKE Not Observed g/dL (Not Observed); PROTEIN, TOTAL, SERUM 5.6 g/dL (6.0-8.5)
[2018-10-25 18:00] VITALS: BP 118/51
--- NOTE | 2018-10-25 18:05 | NUR ---
Patient in room [facility]. I have received report from Shannon CRABTREE and had the opportunity to ask questions and assume patient care.
--- NOTE | 2018-10-25 18:28 | NUR ---
Problems reprioritized. Patient report given, questions answered & plan of care reviewed with LEYDA Carrillo.
[2018-10-25] MEDS: acetaminophen 325mg tablet PO PRN (20:08)
[2018-10-25] MEDS ORDERED: potassium Cl 40MEQ/NS 500ml 500 ML IV PRN ×2 (20:50)
[2018-10-25] MEDS ORDERED: potassium Cl 20 mEq SR tablet PO PRN ×2 (20:50)
[2018-10-25] MEDS ORDERED: magnesium Cl slow-release 64mg tablet PO PRN (20:50)
[2018-10-25] MEDS ORDERED: magnesium 4gm in 100ml NS 100 ML IV PRN (20:50)
[2018-10-25] MEDS: DOCOSANOL 2 GM CREAM..G. TP SCH (21:32)
[2018-10-26] VITALS: BP 94/58
[2018-10-26] MEDS: DOCOSANOL 2 GM CREAM..G. TP SCH ×5 (05:26→21:27)
[2018-10-26 05:30] LABS: ALANINE AMINOTRANSFERASE 22 U/L (12-78); ALBUMIN 1.6 G/DL (3.4-5.0); ALBUMIN/GLOBULIN RATIO 0.3 (1.1-1.5); ALKALINE PHOSPHATASE 105 IU/L (46-116); ANION GAP 3 (8-16); ASPARTATE AMINO TRANSFERASE 38 U/L (10-37); BILIRUBIN,TOTAL 0.2 MG/DL (0.1-1.0); BLOOD UREA NITROGEN 13 MG/DL (7-18); BUN/CREATININE RATIO 17.1 (5.4-32.0); CALCIUM 8.8 MG/DL (8.5-10.1); CHLORIDE 101 MMOL/L (99-107); CREATININE 0.76 MG/DL (0.60-1.10); GLUCOSE 109 MG/DL (70-104); MAGNESIUM 1.8 MG/DL (1.5-2.4); POTASSIUM 4.5 MMOL/L (3.5-5.1); SODIUM 135 MMOL/L (135-145); TOTAL CARBON DIOXIDE 30.9 MMOL/L (24-32); TOTAL PROTEIN 6.6 G/DL (6.4-8.2); eGFR > 90 ML/MIN
[2018-10-26 05:48] LABS: BASOPHILS # (AUTO) 0.1 X10'3 (0-0.2); MEAN PLATELET VOLUME 6.6 FL (7.4-10.4); PLATELET COUNT 761 X10'3 (140-440)
[2018-10-26 05:51] LABS: BASOPHILS % (AUTO) 0.6 % (0-1); EOSINOPHILS # (AUTO) 0.5 X10'3 (0-0.9); EOSINOPHILS % (AUTO) 4.4 % (0-6); HEMATOCRIT 30.6 % (42.0-52.0); HEMOGLOBIN 9.5 g/dl (14.0-17.9); LYMPHOCYTES # (AUTO) 1.6 X10'3 (1.1-4.8); LYMPHOCYTES % (AUTO) 13.2 % (21-51); MEAN CORPUSCULAR HEMOGLOBIN 21.8 PG (27.0-31.0); MEAN CORPUSCULAR HGB CONC 30.9 g/dL (33.0-36.5); MEAN CORPUSCULAR VOLUME 70.4 FL (78-98); MONOCYTES # (AUTO) 0.8 X10'3 (0-0.9); MONOCYTES % (AUTO) 6.4 % (2-12); NEUTROPHILS # (AUTO) 9.4 X10'3 (1.8-7.7); NEUTROPHILS % (AUTO) 75.4 % (42-75); RED BLOOD COUNT 4.35 X10'6 (4.70-6.10); RED CELL DISTRIBUTION WIDTH 19.4 % (11.5-14.5); WHITE BLOOD COUNT 12.4 X10'3 (4.5-11.0)
--- NOTE | 2018-10-26 06:41 | NUR ---
Problems reprioritized. Patient report given, questions answered & plan of care reviewed with Shannon CRABTREE. pt resting, oxygen on. IV intact. call light and frq used belongings within reach.
[2018-10-26 07:15] VITALS: BP 99/59
[2018-10-26] MEDS: pantoprazole 40mg Tablet.DR PO SCH ×2 (07:24→19:20)
[2018-10-26 07:38] LABS: ANISOCYTOSIS 2+; HYPOCHROMASIA 1+; MICROCYTOSIS 1+; PLATELET ESTIMATE INCREASED; POLYCHROMASIA 1+; ROULEAUX 1+; TOTAL CELLS COUNTED 100; TOXIC GRANULATION 1+
[2018-10-26] MEDS: doxycycline inj 100 MG in normal saline 100ml IV soln 100 ML IV SCH ×2 (10:52→19:20)
[2018-10-26 12:28] VITALS: BP 106/62
--- NOTE | 2018-10-26 16:19 | NUR ---
Patient has been complaining of "blonde" bowel movements. I was able to visualize his BM today and the color is a very light montoya/yellow. already aware.
[2018-10-26 18:00] VITALS: BP 116/71
--- NOTE | 2018-10-26 18:24 | NUR ---
Problems reprioritized. Patient report given, questions answered & plan of care reviewed with LEYDA Carrillo.
--- NOTE | 2018-10-26 18:24 | NUR ---
Patient in room [facility]. I have received report from Shannon CRABTREE and had the opportunity to ask questions and assume patient care. pt up walking with . will continue to monitor.
[2018-10-26] MEDS: docusate sod 100mg capsule PO SCH (19:20)
[2018-10-26] MEDS: acetaminophen 325mg tablet PO PRN (22:29)
[2018-10-27] VITALS: BP 95/57
[2018-10-27 05:31] LABS: BASOPHILS # (AUTO) 0.1 X10'3 (0-0.2); EOSINOPHILS # (AUTO) 0.5 X10'3 (0-0.9); MEAN PLATELET VOLUME 6.6 FL (7.4-10.4)
[2018-10-27 05:33] LABS: EOSINOPHILS % (AUTO) 3.8 % (0-6); HEMATOCRIT 28.8 % (42.0-52.0); HEMOGLOBIN 9.1 g/dl (14.0-17.9); LYMPHOCYTES # (AUTO) 1.5 X10'3 (1.1-4.8); MEAN CORPUSCULAR HEMOGLOBIN 22.3 PG (27.0-31.0); MEAN CORPUSCULAR HGB CONC 31.8 g/dL (33.0-36.5); MEAN CORPUSCULAR VOLUME 70.1 FL (78-98); MONOCYTES # (AUTO) 0.7 X10'3 (0-0.9); MONOCYTES % (AUTO) 6.1 % (2-12); NEUTROPHILS # (AUTO) 9.4 X10'3 (1.8-7.7); NEUTROPHILS % (AUTO) 77.1 % (42-75); PLATELET COUNT 690 X10'3 (140-440); RED CELL DISTRIBUTION WIDTH 18.9 % (11.5-14.5); WHITE BLOOD COUNT 12.2 X10'3 (4.5-11.0)
[2018-10-27 05:46] LABS: ALANINE AMINOTRANSFERASE 23 U/L (12-78); ALBUMIN 1.5 G/DL (3.4-5.0); ALBUMIN/GLOBULIN RATIO 0.3 (1.1-1.5); ALKALINE PHOSPHATASE 98 IU/L (46-116); ANION GAP 6 (8-16); ASPARTATE AMINO TRANSFERASE 30 U/L (10-37); BILIRUBIN,TOTAL 0.2 MG/DL (0.1-1.0); BLOOD UREA NITROGEN 15 MG/DL (7-18); CALCIUM 8.8 MG/DL (8.5-10.1); CHLORIDE 102 MMOL/L (99-107); CREATININE 0.75 MG/DL (0.60-1.10); GLUCOSE 109 MG/DL (70-104); MAGNESIUM 1.7 MG/DL (1.5-2.4); POTASSIUM 3.9 MMOL/L (3.5-5.1); SODIUM 137 MMOL/L (135-145); TOTAL CARBON DIOXIDE 29.4 MMOL/L (24-32); TOTAL PROTEIN 6.4 G/DL (6.4-8.2); eGFR > 90 ML/MIN
--- NOTE | 2018-10-27 06:05 | NUR ---
Problems reprioritized. Patient report given, questions answered & plan of care reviewed with Che CRABTREE. pt resting on left side. even, unlabored breathes. pt on room air. IV intact, SL.
[2018-10-27] MEDS: DOCOSANOL 2 GM CREAM..G. TP SCH ×5 (06:11→22:00)
[2018-10-27 06:23] LABS: ANISOCYTOSIS 2+; HYPOCHROMASIA 1+; MICROCYTOSIS 1+; PLATELET ESTIMATE INCREASED; POLYCHROMASIA 1+; TOTAL CELLS COUNTED 100; TOXIC GRANULATION 1+
--- NOTE | 2018-10-27 07:04 | NUR ---
Patient in room [facility]. I have received report from Lorena CRABTREE and had the opportunity to ask questions and assume patient care.
[2018-10-27 07:24] VITALS: BP 96/62
[2018-10-27] MEDS: pantoprazole 40mg Tablet.DR PO SCH ×2 (09:00→19:13)
[2018-10-27] MEDS: docusate sod 100mg capsule PO SCH ×2 (09:01→19:13)
[2018-10-27] MEDS: doxycycline inj 100 MG in normal saline 100ml IV soln 100 ML IV SCH ×2 (09:01→19:14)
[2018-10-27 11:00] VITALS: BP 114/61
--- NOTE | 2018-10-27 15:34 | NUR ---
reassessment: Pt PO 100% regular meals meeting needs. 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 Pt also has microcytic anemia s/p 5d Fe treatment per MD note. MORENITA ordered TIP PUNCHER BSS given hx chronic aspiration but no swallow eval this admit. LBM 10/26 on colace. Will monitor for diet recommendations per TIP PUNCHER. Recommendations: 1) Continue with regular diet; texture modification per TIP PUNCHER recs 2) Wt per rx Addendum: 10/27/18 at [address] Amended: Links added.
--- NOTE | 2018-10-27 18:30 | NUR ---
Patient in room [facility]. I have received report from Che CRABTREE and had the opportunity to ask questions and assume patient care.
--- NOTE | 2018-10-27 18:36 | NUR ---
Problems reprioritized. Patient report given, questions answered & plan of care reviewed with Tawana CRABTREE.
[2018-10-27] MEDS: lactobacillus rhamnosus 10,000 MMU CELLS/CAPSULE PO SCH (19:13)
[2018-10-27 20:00] VITALS: BP 107/63
[2018-10-28] VITALS: BP 104/63
[2018-10-28 05:18] LABS: BASOPHILS # (AUTO) 0.1 X10'3 (0-0.2); EOSINOPHILS # (AUTO) 0.4 X10'3 (0-0.9); MEAN CORPUSCULAR HGB CONC 31.7 g/dL (33.0-36.5); MEAN PLATELET VOLUME 6.6 FL (7.4-10.4); NEUTROPHILS % (AUTO) 78.3 % (42-75)
[2018-10-28 05:20] LABS: EOSINOPHILS % (AUTO) 3.7 % (0-6); HEMATOCRIT 27.6 % (42.0-52.0); HEMOGLOBIN 8.7 g/dl (14.0-17.9); LYMPHOCYTES # (AUTO) 1.2 X10'3 (1.1-4.8); LYMPHOCYTES % (AUTO) 10.8 % (21-51); MEAN CORPUSCULAR VOLUME 69.5 FL (78-98); MONOCYTES # (AUTO) 0.7 X10'3 (0-0.9); MONOCYTES % (AUTO) 6.2 % (2-12); NEUTROPHILS # (AUTO) 8.7 X10'3 (1.8-7.7); PLATELET COUNT 683 X10'3 (140-440); RED BLOOD COUNT 3.97 X10'6 (4.70-6.10); RED CELL DISTRIBUTION WIDTH 18.8 % (11.5-14.5); WHITE BLOOD COUNT 11.1 X10'3 (4.5-11.0)
[2018-10-28 05:27] LABS: ALANINE AMINOTRANSFERASE 20 U/L (12-78); ALBUMIN 1.4 G/DL (3.4-5.0); ALBUMIN/GLOBULIN RATIO 0.3 (1.1-1.5); ALKALINE PHOSPHATASE 88 IU/L (46-116); ANION GAP 6 (8-16); ASPARTATE AMINO TRANSFERASE 23 U/L (10-37); BILIRUBIN,TOTAL 0.3 MG/DL (0.1-1.0); BLOOD UREA NITROGEN 11 MG/DL (7-18); BUN/CREATININE RATIO 14.7 (5.4-32.0); CALCIUM 8.9 MG/DL (8.5-10.1); CHLORIDE 100 MMOL/L (99-107); CREATININE 0.75 MG/DL (0.60-1.10); GLUCOSE 103 MG/DL (70-104); MAGNESIUM 1.6 MG/DL (1.5-2.4); POTASSIUM 4.2 MMOL/L (3.5-5.1); SODIUM 134 MMOL/L (135-145); TOTAL CARBON DIOXIDE 28.2 MMOL/L (24-32); TOTAL PROTEIN 6.1 G/DL (6.4-8.2); eGFR > 90 ML/MIN
[2018-10-28 05:58] LABS: ANISOCYTOSIS 2+; HYPOCHROMASIA 1+; MICROCYTOSIS 2+; PLATELET ESTIMATE INCREASED; POLYCHROMASIA 1+; TOTAL CELLS COUNTED 100
[2018-10-28 05:59] LABS: ELLIPTOCYTES FEW; TOXIC GRANULATION 1+
--- NOTE | 2018-10-28 06:15 | NUR ---
Patient in room [facility]. I have received report from LEYDA Gilliam and had the opportunity to ask questions and assume patient care.
--- NOTE | 2018-10-28 06:47 | NUR ---
Problems reprioritized. Patient report given, questions answered & plan of care reviewed with Sarai RN.
[2018-10-28] MEDS: DOCOSANOL 2 GM CREAM..G. TP SCH ×5 (06:58→22:00)
[2018-10-28] MEDS: docusate sod 100mg capsule PO SCH ×2 (07:00→20:28)
[2018-10-28] MEDS: pantoprazole 40mg Tablet.DR PO SCH ×2 (07:00→20:28)
[2018-10-28] MEDS: lactobacillus rhamnosus 10,000 MMU CELLS/CAPSULE PO SCH ×2 (07:00→20:28)
[2018-10-28] MEDS: doxycycline inj 100 MG in normal saline 100ml IV soln 100 ML IV SCH (07:00)
[2018-10-28 07:30] VITALS: BP 107/69
[2018-10-28 11:30] VITALS: BP 93/58
[2018-10-28 15:13] LABS: ATYPICAL PANCA <1:20 titer (Neg:<1:20); CYTOPLASMIC (C-ANCA) <1:20 titer (Neg:<1:20)
[2018-10-28] MEDS: DOXYCYCLINE 100MG CAPSULE PO SCH (17:08)
--- NOTE | 2018-10-28 18:20 | NUR ---
Problems reprioritized. Patient report given, questions answered & plan of care reviewed with Keri RN.
--- NOTE | 2018-10-28 18:30 | NUR ---
pt request PIV not be placed tonight; aware it needs to be placed before surgery tomorrow & was told by Dr Quiroz it would be at noon; request it be placed tomorrow before surgery Addendum: 10/29/18 at 0327 by Julisa Carson RN Amended: Links added.
[2018-10-28 19:00] VITALS: BP 109/58
[2018-10-28] MEDS: acetaminophen 325mg tablet PO PRN (20:28)
[2018-10-29] VITALS (17 sets, daily range): BP systolic 87–121; BP diastolic 56–78
[2018-10-29 05:15] LABS: BASOPHILS # (AUTO) 0.1 X10'3 (0-0.2); BASOPHILS % (AUTO) 0.6 % (0-1); EOSINOPHILS # (AUTO) 0.4 X10'3 (0-0.9); EOSINOPHILS % (AUTO) 3.8 % (0-6); HEMOGLOBIN 8.6 g/dl (14.0-17.9); LYMPHOCYTES # (AUTO) 1.4 X10'3 (1.1-4.8); LYMPHOCYTES % (AUTO) 14.4 % (21-51); MEAN CORPUSCULAR HEMOGLOBIN 22.5 PG (27.0-31.0); MEAN CORPUSCULAR VOLUME 70.2 FL (78-98); MEAN PLATELET VOLUME 6.5 FL (7.4-10.4); MONOCYTES # (AUTO) 0.6 X10'3 (0-0.9); MONOCYTES % (AUTO) 6.6 % (2-12); NEUTROPHILS # (AUTO) 7.1 X10'3 (1.8-7.7); NEUTROPHILS % (AUTO) 74.6 % (42-75); PLATELET COUNT 643 X10'3 (140-440); RED BLOOD COUNT 3.84 X10'6 (4.70-6.10); RED CELL DISTRIBUTION WIDTH 18.9 % (11.5-14.5); WHITE BLOOD COUNT 9.6 X10'3 (4.5-11.0)
[2018-10-29 05:28] LABS: ALANINE AMINOTRANSFERASE 21 U/L (12-78); ALBUMIN 1.4 G/DL (3.4-5.0); ALBUMIN/GLOBULIN RATIO 0.3 (1.1-1.5); ALKALINE PHOSPHATASE 84 IU/L (46-116); ANION GAP 4 (8-16); ASPARTATE AMINO TRANSFERASE 23 U/L (10-37); BILIRUBIN,TOTAL 0.2 MG/DL (0.1-1.0); BLOOD UREA NITROGEN 14 MG/DL (7-18); BUN/CREATININE RATIO 16.7 (5.4-32.0); CALCIUM 8.7 MG/DL (8.5-10.1); CHLORIDE 102 MMOL/L (99-107); CREATININE 0.84 MG/DL (0.60-1.10); GLUCOSE 106 MG/DL (70-104); MAGNESIUM 1.7 MG/DL (1.5-2.4); POTASSIUM 4.1 MMOL/L (3.5-5.1); SODIUM 136 MMOL/L (135-145); TOTAL CARBON DIOXIDE 30.5 MMOL/L (24-32); TOTAL PROTEIN 6.2 G/DL (6.4-8.2); eGFR > 90 ML/MIN
[2018-10-29 05:35] LABS: PRE OP INR 1.1 INR; PRE OP PROTIME 11.4 SECONDS (9.0-12.0)
--- NOTE | 2018-10-29 07:04 | NUR ---
Patient in room [facility]. I have received report from Pat RN and had the opportunity to ask questions and assume patient care.
[2018-10-29 07:30] LABS: PLATELET ESTIMATE INCREASED
[2018-10-29 07:31] LABS: ANISOCYTOSIS 2+; ELLIPTOCYTES FEW; HYPOCHROMASIA 1+; MICROCYTOSIS 1+; POLYCHROMASIA FEW
[2018-10-29] MEDS: docusate sod 100mg capsule PO SCH ×2 (07:34→20:25)
[2018-10-29] MEDS: pantoprazole 40mg Tablet.DR PO SCH ×2 (07:34→20:25)
[2018-10-29] MEDS: lactobacillus rhamnosus 10,000 MMU CELLS/CAPSULE PO SCH ×2 (07:34→20:25)
[2018-10-29] MEDS: DOXYCYCLINE 100MG CAPSULE PO SCH (07:34)
[2018-10-29] MEDS: DOCOSANOL 2 GM CREAM..G. TP SCH ×5 (07:38→22:09)
[2018-10-29] MEDS: HYDROcodone/acetaminophen 10/325mg tab PO PRN (07:40)
[2018-10-29] MEDS ORDERED: LIDOcaine 1% 30ml preserv. free vial ONE ×2 (10:43→10:50)
[2018-10-29] MEDS ORDERED: LIDOcaine 1.5% w/epinephrine 1:200,000 5ml ampul ONE (10:46)
[2018-10-29] MEDS ORDERED: epiNEPHrine 1 mg/ml inj ONE (10:49)
[2018-10-29] MEDS ORDERED: MIDAZolam 5mg/5ml vial ONE (11:50)
[2018-10-29] MEDS ORDERED: fentaNYL/PF 50MCG/1 ML 2ML syringe ONE (11:50)
--- NOTE | 2018-10-29 11:52 | NUR ---
Student Medication Administration: For this medication-pass time frame, all medication were reviewed, dispensed, administered and documented per hospital policy by Meño nursing informatics clinical analyst.
--- NOTE | 2018-10-29 11:52 | NUR ---
Student documentation: I have reviewed and agree with all interventions, assessments performed and documented by Meño, chief nursing executive.
[2018-10-29] MEDS ORDERED: ringers solution, lacted 1,000 ML IV SCH (12:15)
[2018-10-29] MEDS ORDERED: morphine 4 MG/ML inj SYRINge IV PRN ×2 (12:15)
[2018-10-29] MEDS ORDERED: ondansetron/PF 4mg/2ml inj IV PRN (12:15)
[2018-10-29] MEDS ORDERED: meperidine/PF 25mg/ml syringe IV PRN ×3 (12:15)
[2018-10-29] MEDS ORDERED: proCHLORperazine 10 MG/2 ml inj IV PRN (12:15)
--- NOTE | 2018-10-29 12:25 | NUR ---
Received from OR via SURGICAL BED, accompanied by Anesthesiologist DR LAMAR and report given by Anesthesiolgist. PT PLACED ON O2 AND MONITOR, S/P LEFT TEMPORAL ARTERY BIOPSY, MAC ANESTHESIA, PT AROUSES EASILY, DENIES ANY PAIN OR NAUSEA, WILL CONT TO ASSESS.
--- NOTE | 2018-10-29 13:15 | NUR ---
Report called to receiving nurse. Transferred via SURGICAL BED TO ROOM 341 Belongings . Special Issues communicated to receiving nurse. PT'S FAMILY AT BEDSIDE
--- NOTE | 2018-10-29 14:09 | NUR ---
patient returned from recovery with full syringe of fentanyl attached to patients IV port. Director jerry contacted, Fentanyl discarded with staff nurse tomi frias as witness.
--- NOTE | 2018-10-29 14:30 | NUR ---
patient returned to unit following temporal artery biopsy, alert and orientated but sedated. Report given by Marisa CRABTREE. will continue to monitor
--- NOTE | 2018-10-29 15:44 | NUR ---
Student documentation: I have reviewed and agree with all interventions, assessments performed and documented by Courtney student nurse.
--- NOTE | 2018-10-29 15:51 | NUR ---
Patient in room [facility]. I have received report from Lindsey and had the opportunity to ask questions and assume patient care.
--- NOTE | 2018-10-29 16:00 | NUR ---
BLE strength on dorsiflex/extension equal, normal, but pt states he can't feel his feet when he steps on the floor; also c/o bilat calf and thigh pain with walking, but has no pain at rest Addendum: 10/29/18 at 1605 by Courtney VIGIL Amended: Links added.
--- NOTE | 2018-10-29 16:03 | NUR ---
patient states stool color is "blonde" since CT scan about 1.5 weeks ago; states comes out as "pellets" but he thinks that is from the stool softener Addendum: 10/29/18 at 1605 by Courtney VIGIL Amended: Links added.
--- NOTE | 2018-10-29 16:06 | NUR ---
Problems reprioritized. Patient report given, questions answered & plan of care reviewed with
--- NOTE | 2018-10-29 18:45 | NUR ---
patient went for procedure temporal artery biopsy see notes, appeared to tolerate procedure. Post op VS stable. patient able to tolerate reg diet. at bedside. report given to codey leigh
--- NOTE | 2018-10-29 19:04 | NUR ---
Patient in room [facility]. I have received report from Lindsey CARBTREE and had the opportunity to ask questions and assume patient care with Tri CRABTREE and Sheryl CRABTREE.
[2018-10-29] MEDS: acetaminophen 325mg tablet PO PRN (20:47)
[2018-10-30] VITALS: BP 95/63
[2018-10-30 04:27] VITALS: BP 101/62
--- NOTE | 2018-10-30 06:23 | NUR ---
Reviewed Prudence RN's charting agree with assessment, guided with medication administration, and report to next shift.
--- NOTE | 2018-10-30 06:25 | NUR ---
Problems reprioritized. Patient report given Lindsey CRABTREE, questions answered & plan of care reviewed with Mariah CRABTREE.Patient awaiting to be discharged this morning.
--- NOTE | 2018-10-30 06:36 | NUR ---
Patient in room [facility]. I have received report from DAHIANA CRABTREE and had the opportunity to ask questions and assume patient care.
[2018-10-30 07:00] VITALS: BP 109/50
[2018-10-30] MEDS: docusate sod 100mg capsule PO SCH (07:20)
[2018-10-30] MEDS: lactobacillus rhamnosus 10,000 MMU CELLS/CAPSULE PO SCH (07:20)
[2018-10-30] MEDS: pantoprazole 40mg Tablet.DR PO SCH (07:20)
[2018-10-30] MEDS: DOCOSANOL 2 GM CREAM..G. TP SCH ×2 (07:24→10:18)
[2018-10-30] MEDS ORDERED: LACT1CAP26 PO (09:37)
[2018-10-30] MEDS ORDERED: DOCO2CRE TP (09:37)
[2018-10-30] MEDS ORDERED: COL100C PO (09:37)
--- NOTE | 2018-10-30 13:19 | NUR ---
patient seen by dr Garcia. Is for discharge. Dr shafer contacted wrt wound care. Stated it was ok for patient to shower and be DC. All instructions given to patient and spouse. patient DC home with spouse via private car in stable condition, home.
[2018-11-01 05:16] LABS: EBV AB VCA, IGM <36.0 U/mL (0.0-35.9)
[2018-11-01 13:32] LABS: ANTIMYELOPEROXIDASE ABS >100.0 U/mL (0.0-9.0); ANTIPROTEINASE 3 ABS <3.5 U/mL (0.0-3.5)
== END 2018-10-30 12:42 | disposition home health service (06) | DRG 823 ==
LOC: ER 14:14 → SUR 3N 20:33 → CMPBEDREQ 23:17
PROVIDERS: ADMIT Internal Medicine; ATTEND Family Medicine
PROC: BW281ZZ Computerized Tomography (CT Scan) of Head using Low Osmolar Contrast (ICD-10-PCS; principal; 2018-10-15)
PROC: BW241ZZ Computerized Tomography (CT Scan) of Chest and Abdomen using Low Osmolar Contrast (ICD-10-PCS; 2018-10-15)
PROC: BW2F1ZZ Computerized Tomography (CT Scan) of Neck using Low Osmolar Contrast (ICD-10-PCS; 2018-10-15)
PROC: 0DB98ZX Excision of Duodenum, Via Natural or Artificial Opening Endoscopic, Diagnostic (ICD-10-PCS; 2018-10-17)
PROC: 0DBN8ZZ Excision of Sigmoid Colon, Via Natural or Artificial Opening Endoscopic (ICD-10-PCS; 2018-10-17)
PROC: BW211ZZ Computerized Tomography (CT Scan) of Abdomen and Pelvis using Low Osmolar Contrast (ICD-10-PCS; 2018-10-18)
PROC: 0BBJ8ZX Excision of Left Lower Lung Lobe, Via Natural or Artificial Opening Endoscopic, Diagnostic (ICD-10-PCS; 2018-10-18)
PROC: 0BDJ8ZX Extraction of Left Lower Lung Lobe, Via Natural or Artificial Opening Endoscopic, Diagnostic (ICD-10-PCS; 2018-10-18)
PROC: 03BT3ZX Excision of Left Temporal Artery, Percutaneous Approach, Diagnostic (ICD-10-PCS; 2018-10-29)
DX: D89.1 Cryoglobulinemia (principal); J69.1 Pneumonitis due to inhalation of oils and essences; J96.20 Acute and chronic respiratory failure, unspecified whether with hypoxia or hypercapnia; E87.1 Hypo-osmolality and hyponatremia; D50.9 Iron deficiency anemia, unspecified; Z77.090 Contact with and (suspected) exposure to asbestos; K63.5 Polyp of colon; R20.2 Paresthesia of skin; G89.29 Other chronic pain; J98.4 Other disorders of lung; K21.9 Gastro-esophageal reflux disease without esophagitis; K57.30 Diverticulosis of large intestine without perforation or abscess without bleeding; R62.7 Adult failure to thrive; Z68.21 Body mass index [BMI] 21.0-21.9, adult; Z80.0 Family history of malignant neoplasm of digestive organs; Z79.899 Other long term (current) drug therapy
CPT/HCPCS: 31622; 31623; 31625; 43239; 45380; 93306; 96365; 99285; Z7506; 36415; 70470; 70491; 71045; 71260; 74177; 76000; 76499; 80053; 81001; 82164; 82272; 82550; 82595; 82607; 82728; 82784; 82948; 83010; 83540; 83550; 83615; 83735; 83880; 84100; 84145; 84155; 84165; 84443; 84484; 85025; 85045; 85610; 85651; 85730; 86021; 86038; 86140; 86200; 86256; 86334; 86430; 86431; 86592; 86618; 86663; 86664; 86665; 86677; 86703; 86777; 86803; 87040; 87070; 87102; 87340; 87899; 93005; 94640; 94760; 97116; 97161; 97530; 99152; 99153; A4615; A4620; A6255; A7000; G0378; J0171; J1644; J2250; J2270; J2405; J2543; J2916; J3010; J3490; J7030; J7120; Q9963; Q9967

== ENCOUNTER 2018-11-27 11:03 | Day surgery (SDC) | payer BC ==
[~2018-11-27] VITALS: Ht 185.4 cm; Wt 74.0 kg
[2018-11-27] VITALS (7 sets, daily range): BP systolic 107–115; BP diastolic 65–78
[~2018-11-27 11:03] MED LIST: ASPI-611 PO; CITRICAL PO; MULT-955 PO; OMEP-50 PO; PRED10TA23 PO; sevoflurane 250ml liquid IH ONE
[2018-11-27] MEDS ORDERED: cefazolin/dext.iso 2gm/100ml 100 ML IV ONE (12:00)
[2018-11-27] MEDS ORDERED: ringers solution, lacted 1,000 ML IV SCH ×2 (12:00→17:15)
[2018-11-27] MEDS ORDERED: famotidine 20mg tablet PO ONE (12:00)
[2018-11-27 12:04] LABS: BASOPHILS % (AUTO) 0.1 % (0-1); EOSINOPHILS % (AUTO) 0.3 % (0-6); HEMATOCRIT 36.3 % (42.0-52.0); HEMOGLOBIN 11.4 g/dl (14.0-17.9); LYMPHOCYTES # (AUTO) 0.5 X10'3 (1.1-4.8); LYMPHOCYTES % (AUTO) 4.2 % (21-51); MEAN CORPUSCULAR HEMOGLOBIN 22.8 PG (27.0-31.0); MEAN CORPUSCULAR HGB CONC 31.5 g/dL (33.0-36.5); MEAN CORPUSCULAR VOLUME 72.1 FL (78-98); MEAN PLATELET VOLUME 6.6 FL (7.4-10.4); MONOCYTES # (AUTO) 0.3 X10'3 (0-0.9); MONOCYTES % (AUTO) 2.4 % (2-12); NEUTROPHILS # (AUTO) 11.2 X10'3 (1.8-7.7); PLATELET COUNT 410 X10'3 (140-440); RED BLOOD COUNT 5.03 X10'6 (4.70-6.10); WHITE BLOOD COUNT 12.1 X10'3 (4.5-11.0)
[2018-11-27] MEDS ORDERED: FISH12002 PO (12:13)
[2018-11-27 12:20] LABS: ANION GAP 6 (8-16); CHLORIDE 101 MMOL/L (99-107); GLUCOSE 112 MG/DL (70-104); SODIUM 135 MMOL/L (135-145); TOTAL CARBON DIOXIDE 27.9 MMOL/L (24-32)
[2018-11-27 12:21] LABS: ALANINE AMINOTRANSFERASE 20 U/L (12-78); ALBUMIN 2.6 G/DL (3.4-5.0); ALBUMIN/GLOBULIN RATIO 0.6 (1.1-1.5); ALKALINE PHOSPHATASE 79 IU/L (46-116); ASPARTATE AMINO TRANSFERASE 13 U/L (10-37); BILIRUBIN,TOTAL 0.4 MG/DL (0.1-1.0); BLOOD UREA NITROGEN 16 MG/DL (7-18); BUN/CREATININE RATIO 23.2 (5.4-32.0); CALCIUM 9.3 MG/DL (8.5-10.1); CREATININE 0.69 MG/DL (0.60-1.10); TOTAL PROTEIN 6.8 G/DL (6.4-8.2); eGFR > 90 ML/MIN
[2018-11-27 12:30] LABS: ANISOCYTOSIS 3+; MICROCYTOSIS 1+; PLATELET ESTIMATE NORMAL
--- NOTE | 2018-11-27 15:00 | NUR ---
DR. VILLANUEVA IN TO SEE PT. PT. AWARE OF DELAY.
[2018-11-27] MEDS ORDERED: BUPIVAcaine/PF 2.5 mg/ml (0.25%) 30ml vial ONE (16:30)
[2018-11-27] MEDS ORDERED: fentaNYL/PF 50MCG/1 ML 2ML syringe ONE (16:35)
[2018-11-27] MEDS ORDERED: midazolam 2 mg/2 ml injection ONE (16:35)
[2018-11-27] MEDS ORDERED: propofol inj 20 ML IV ONE (17:11)
[2018-11-27] MEDS ORDERED: dexamethasone sod phosphate 4mg/ml inj. ONE (17:11)
[2018-11-27] MEDS ORDERED: morphine 4 MG/ML inj SYRINge IV PRN ×2 (17:15)
[2018-11-27] MEDS ORDERED: meperidine/PF 25mg/ml syringe IV PRN ×3 (17:15)
[2018-11-27] MEDS ORDERED: ondansetron/PF 4mg/2ml inj IV PRN (17:15)
[2018-11-27] MEDS ORDERED: proCHLORperazine 10 MG/2 ml inj IV PRN (17:15)
--- NOTE | 2018-11-27 17:30 | NUR ---
[facility], accompanied by Anesthesiologist COY and report given by Anesthesiolgist. PT SLEEPY, OXYGENATING WELL ON 10 LPM 02 VIA MASK, NO RESP DISTRESS NOTED. DENIES PAIN OR NAUSEA. SM ISLAND DSG TO POSTERIOR R ANKLE/CALF, CDI. PPP=BLIAT. VSS.
--- NOTE | 2018-11-27 18:30 | NUR ---
VSS, NO PAIN, PT TAKING PO FLUIDS WELL. DC INSTRUCTIONS EXPLAINED TO PT, HE VERBALIZED UNDERSTANDING. DCD IN STABLE CONDITION. TAKEN TO CAR VIA WC.
== END 2018-11-27 18:30 | disposition home or self-care (01) ==
LOC: PAS 11:03
PROVIDERS: ATTEND Surgery
DX: G62.89 Other specified polyneuropathies (principal); M31.6 Other giant cell arteritis; M62.81 Muscle weakness (generalized); K21.9 Gastro-esophageal reflux disease without esophagitis; Z87.891 Personal history of nicotine dependence; Z79.899 Other long term (current) drug therapy; Z87.09 Personal history of other diseases of the respiratory system
CPT/HCPCS: 36415; 64795; 80053; 82948; 85025; A6255; J0690; J1100; J2250; J2704; J3010; J3490; A7000; J7120

== ENCOUNTER 2020-12-08 14:36 | Outpatient (CLI) | payer BC, MEDICARE ==
[~2020-12-08 14:36] MED LIST changes: +FISH12002 PO; -sevoflurane 250ml liquid IH ONE
== END 2020-12-08 23:59 | disposition home or self-care (01) ==
LOC: RAD 14:36
PROVIDERS: ATTEND Family Medicine
DX: R13.10 Dysphagia, unspecified (principal)
CPT/HCPCS: 74230